=== PATIENT | female | born 1945 | race Caucasian/White ===

== ENCOUNTER 2018-10-13 06:34 | Inpatient (IN) ==
--- NOTE | 2018-10-13 06:50 | History & Physical Report ---
Date of Encounter: 10/13/18 Time of Encounter: 06:49 24 Hour HP Update - Instructions Instructions: If the History and Physical is less than 30 days old and was completed prior to A.M. admission and or procedure and has NOT been updated on calendar day of procedure please complete this update prior to performing procedure. - Update Patient reports changes in Medical Condition: No Changes in examination, assessment, or condition: No Changes in Medication: No Preop tests/diagnostics Reviewed: Yes Surgery Remains Indicated: Yes Consent for Planned Operative Procedure(s) Verified: Yes - Pre-Operative Checklist Preoperative Checklist Indicated: No Prophylactic Antibiotic Ordered: Yes Is VTE Prophylaxis Indicated?: Yes
[2018-10-13] MEDS ORDERED: CeFAZolin Syr 2,000MG/20 ML 2,000 MG/20 ML SYRINGE IVPB ONE (06:57)
[2018-10-13] MEDS ORDERED: Ringers Solution, Lactated 1,000 ML IVC SCH (07:00)
[2018-10-13] MEDS ORDERED: LIDOCAINE 1% PF 2 ML AMPUL ONE (07:03)
[2018-10-13] MEDS ORDERED: Ethanol\\Acetic Acid\\Na Ace\\Ben 1,000 ML IRRIG.SOLN IR ONE (07:09)
[2018-10-13] MEDS ORDERED: *HR* Propofol 200 MG/20 ML VIAL IVP ONE (07:17)
[2018-10-13] MEDS ORDERED: *HR* Midazolam HCl 2 MG/2 ML VIAL ONE (07:17)
[2018-10-13] MEDS ORDERED: Dexamethasone 4 MG/ML VIAL ONE (07:17)
[2018-10-13] MEDS ORDERED: *HR* FentaNYL (PF) 100 MCG/2 ML VIAL ONE (07:17)
[2018-10-13] MEDS ORDERED: Ondansetron 4 MG/2 ML VIAL ONE (07:17)
[2018-10-13] MEDS ORDERED: Lidocaine -MPF 2% 2 ML VIAL ONE (07:18)
[2018-10-13] MEDS ORDERED: Famotidine 20 MG/2 ML VIAL IVP ONE (07:21)
[2018-10-13] MEDS ORDERED: Acetaminophen IV 1,000 MG/100 ML INFUS..BTL IVPB ONE (07:22)
--- NOTE | 2018-10-13 07:25 | Anesthesia Evaluation PreOp ---
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: Other (Fibromyalgia) Other Medical History: Diabetes Type II Anesthesia History: No Prior Anesthetic Complications : No Alcohol Use: none Drug use: none Medications and Allergies Aspirin [Adult Aspirin Regimen] 81 mg PO DAILY 10/13/18 [History] Cholecalciferol (D-3) [Vitamin D] 1,000 unit PO DAILY 10/13/18 [History] Exenatide Microspheres [Bydureon] 2 mg SQ MO 10/13/18 [History] Fenofibrate Nanocrystallized [Fenofibrate] 145 mg PO DAILY 10/13/18 [History] Glimepiride [Amaryl] 2 mg PO DAILY 10/13/18 [History] Insulin Degludec [Tresiba Flextouch U-100] 42 unit SQ HS 10/13/18 [History] Losartan Potassium [Cozaar] 100 mg PO DAILY 10/13/18 [History] Metformin HCl [Metformin HCl ER] 1,000 mg PO BID 10/13/18 [History] Multivitamin [One Daily Essential] 1 tab PO DAILY 10/13/18 [History] traZODone [TraZODone] 50 mg PO HS PRN 10/13/18 [History] Allergy/AdvReac Type Severity Reaction Status Date / Time Eykufjf-Zwb-Dye Reductase Allergy Muscle Pain Verified 10/13/18 07:06 Inhibitor [Statins] - Meds/Allergy Pre-op Review Medications Reviewed: Yes Allergies Reviewed: Yes Beta Blockers on Current Med List: No Anesthesia Results - Labs Laboratory Tests 10/08/18 10/08/18 10:37 10:37 Hgb 11.6 Hct 37.1 Plt Count 255 Sodium 139 Potassium 4.7 BUN 25 H Creatinine 0.87 - Imaging EKG: report reviewed (SR) Anesthesia Exam O2 Sat Height 1.6 m Height 1.6 m Height 1.6 m Weight 76.657 kg Weight 76.657 kg Weight 76.657 kg O2 Sat by Pulse Oximetry 96 Vital Signs Temp Pulse Resp BP Pulse Ox 98.1 F 90 18 155/85 96 10/13/18 07:00 10/13/18 07:00 10/13/18 07:00 10/13/18 07:00 10/13/18 07:00 Height: 5'3 Weight: 169 lbs NPO (# of Hours): MN Pain Scale: 0 - HEENT Pupil (Motor): Pupils equal, EOMI Mallampati: II Teeth: Normal Oral Opening: Greater than 3 - FOOD PRESERVATION SCIENTIST LOC: Oriented FOOD PRESERVATION SCIENTIST Motor: Normal RUE, Normal LUE, Normal RLE, Normal LLE, Normal Face FOOD PRESERVATION SCIENTIST Sensory: Normal: RUE, LUE, RLE, LLE, Face - Cardiac Rhythm: Regular Murmur: None JVD: No Carotid Bruit: No - Pulmonary Breath Sounds: bilateral Clear Respiratory Effort: Symmetrical Anesthesia Assess/Plan ASA Score: 3 (HTN DM) Level of consciousness: Cooperative Anesthetic Plan: Regional Nerve Block, MAC, Spinal Regional Nerve Block Plan: Adductor canal Autologous Blood: No Monitoring Plan: Standard Monitors Recovery Plan: PACU (Discussed SAB, Adductor Canal Block, MAC, possible GA, agrees to proceed, risks and benefits)
[2018-10-13] MEDS ORDERED: Morphine Sulfate/PF 5mg/10mL Vial ONE (07:43)
[2018-10-13] MEDS ORDERED: ROPIVACAINE HCL/PF 0.5% 30 ML VIAL ONE (07:44)
[2018-10-13] MEDS ORDERED: Bupivacaine/Clonidine Syringe 1 EACH SYRINGE ONE (07:44)
[2018-10-13] MEDS ORDERED: *HR* Morphine Sulfate/PF 10 MG/10 ML AMPUL ONE (08:03)
[2018-10-13] MEDS ORDERED: Propofol 500 MG/50 ML INFUS..BTL ONE (08:24)
--- NOTE | 2018-10-13 08:25 | Discharge Summary ---
<Stephanie Reyes E - Last Filed: 10/13/18 09:07> Orders not resulted at time of discharge: Pending orders 10/13/18 07:22 US anesthesia pain block [US] Routine 10/14/18 01:00 XR knee RT 1-2V [XR] Routine Hemoglobin and Hematocrit [HEME] Routine Date of Encounter: 10/13/18 - Discharge Diagnosis (1) Status post total knee replacement Priority: Primary Status: Acute Qualifiers: Laterality: right Qualified Code(s): Z96.651 - Presence of right artificial knee joint (2) Osteoarthritis of right knee Priority: Primary Status: Chronic Qualifiers: Osteoarthritis type: unspecified Qualified Code(s): M17.11 - Unilateral primary osteoarthritis, right knee (3) Diabetes mellitus Priority: Secondary Status: Chronic Qualifiers: Diabetes mellitus type: type 2 Diabetes mellitus fci insulin use: with fci use Diabetes mellitus complication status: with unspecified complications Qualified Code(s): E11.8 - Type 2 diabetes mellitus with unspecified complications; Z79.4 - intermediate (current) use of insulin (4) HTN (hypertension) Priority: Secondary Status: Chronic Qualifiers: Hypertension type: unspecified Qualified Code(s): I10 - Essential (primary) hypertension (5) HLD (hyperlipidemia) Priority: Secondary Status: Chronic Qualifiers: Hyperlipidemia type: unspecified Qualified Code(s): E78.5 - Hyperlipidemia, unspecified (6) CAD (coronary artery disease) Priority: Secondary Status: Chronic Qualifiers: Coronary Disease-Associated Artery/Lesion type: unspecified vessel or lesion type [place] vs. transplanted heart: unspecified whether [place] or transplanted heart Associated angina: angina presence unspecified Qualified Code(s): I25.10 - Atherosclerotic heart disease of [place] coronary artery without angina pectoris (7) Fibromyalgia Priority: Secondary Status: Chronic (8) Insomnia Priority: Secondary Status: Chronic Qualifiers: Insomnia type: unspecified Qualified Code(s): G47.00 - Insomnia, unspecified (9) History of skin cancer Priority: Secondary Status: Chronic (10) History of kidney stones Priority: Secondary Status: Chronic - Hospital Course Hospital course: Ms. Watkins is a 73 year old female - Time Spent with Patient Total time spent providing and/or coordinating discharge services: - Discharge Medications Home Medications: Aspirin Enteric Coated [Aspirin EC] 325 mg PO BID 10 Days #20 tablet. 10/13/18 [Rx] Cholecalciferol (D-3) [Vitamin D] 1,000 unit PO DAILY 10/13/18 [History] Docusate Sodium [Colace] 100 mg PO BID 5 Days #10 capsule 10/13/18 [Rx] Exenatide Microspheres [Bydureon] 2 mg SQ MO 10/13/18 [History] Fenofibrate Nanocrystallized [Fenofibrate] 145 mg PO DAILY 10/13/18 [History] Glimepiride [Amaryl] 2 mg PO DAILY 10/13/18 [History] Insulin Degludec [Tresiba Flextouch U-100] 42 unit SQ HS 10/13/18 [History] Losartan Potassium [Cozaar] 100 mg PO DAILY 10/13/18 [History] Metformin HCl [Metformin HCl ER] 1,000 mg PO BID 10/13/18 [History] Multivitamin [One Daily Essential] 1 tab PO DAILY 10/13/18 [History] OxyCODONE Immed Rel [Roxicodone 5 MG] 5 mg PO Q6HR PRN 7 Days #28 tablet 10/13/18 [Rx] traZODone [TraZODone] 50 mg PO HS PRN 10/13/18 [History] Lidocaine Patch [Lidoderm 5% patch] 1 each TP DAILY adh..patch 10/15/18 [Rx] Gabapentin [Neurontin] 100 mg PO TID capsule 10/16/18 [Rx] Allergies/Adverse Reactions: Allergy/AdvReac Type Severity Reaction Status Date / Time Nxvfvob-Qim-Wnf Reductase Allergy Muscle Pain Verified 10/13/18 07:06 Inhibitor [Statins] Primary care physician: Toan Angela MD - Patient Status Disposition: Transfer Inpatient Rehab Fac Condition: Good - Discharge Instructions Follow Up With: Stephanie Reyes PAC [Physician Extension Educator] - 10/23/18 8:45 am (Second followup 10/30/18 @ 9am) Jose Posey MD [Partnered Physician] - 11/12/18 5:10 pm Additional Instructions: Discharge Instructions: Total Knee Replacement Please call [facility] ([phone]), your Primary Care Physician, or report to the Emergency Room if you have any of the following symptoms: Nausea, vomiting, fever greater that 101.5, swelling, chest pain, shortness of breath, increased pain/redness/drainage/odor for your incision site, numbness/tingling, or any other concerning symptoms. ACTIVITY:Weight-bearing as tolerated. You may progress off support (crutches or walker) as tolerated. Incentive Spirometer 10 times an hour. MEDICATIONS: Upon discharge resume your home medications. Take all the medications as prescribed. Take a stool softener if taking narcotic pain medications. Stool softeners are only effective if you drink enough fluids. Drink 6-8 glass of water or fluids a day, unless this is not allowed for another health problem. Despite using stool softeners, if you haven't had a bowel movement in 3 days, please switch to a gentle laxative. Gentle laxatives are sold over the counter. You should have a bowel movement within 24 hours, if not call the office. You will be discharged from the hospital with a prescription for pain medication. You are encouraged to decrease the use of narcotic pain medication as tolerated. Should you require a refill, please call the office. [facility] prescribes narcotic pain medication for only 4-6 weeks after surgery. If you require pain medication beyond this time period, you may be referred to your Primary Care Physician or to the Pain Clinic for further evaluation. Plan ahead for refills on pain medication as many narcotics either need to be picked up at the office or mailed. It is best to call 48-72 hours in advance of needing a prescription refill so you don't run out of medication. To help control the post-operative pain, you may take NSAIDs (Aleve,Advil, Motrin, Ibuprofen, Naprosyn) or Tylenol as prescribed on the bottle in addition to the pain medication. ANTICOAGULATION (blood thinners): Continue your Aspirin, Lovenox or Coumadin as prescribed to help prevent a blood clot in the leg or in the lungs. As long as your incision remains dry and you tolerate the NSAIDs (Aleve, Advil, Motrin, ibuprofen, naprosyn), it is OK to use the NSAIDS while you are taking your anticoagulation medication. Should your incision start to drain, stop the NSAID and contact our office. Common symptoms of blood clot in the legs include: localized pain, swelling, calf tenderness, redness or discoloration of the skin. Blood clot in the lung symptoms include: shortness of breath, rapid pulse, sweating, and chest pain that worsens with deep breathing, coughing up blood, lightheadedness, feelings of anxiety. If you experience any of these symptoms notify your physician immediately, go to the emergency room, or if having trouble breathing, call 911. WOUND CARE: Leave the dressing on for 7 to 10days. You may change the dressing if it becomes saturated greater than 50%. Do not get the dressing wet at any time. Wash your hands with antibacterial soap, rinse and dry prior to any wound care. If you have sandra the visiting nurse or rehab facility can remove the stapes 10-14 days after surgery and place steri-strips across the wound. Leave the steri-strips in place until they fall off on their won. You may let water from the shower run on top of the steri-strips. If you do not have a visiting nurse or rehab facility, you will need to return to the office at 10-14 days for the sandra to be removed. If you have itching or redness around the dressing call the office. FOLLOW-UP: Please follow up with your surgeon in the orthopedic clinic in 4 weeks from the day of surgery. If you have sandra that need to be removed, you will need to come back to the office in 10-14 days from the day of surgery. <Stephanie Fernandes - Last Filed: 10/16/18 21:24> - NOTES TO OUTPATIENT PROVIDER Notes to Outpatient Provider: Will hold zanaflex for now due to causing low BP Orders not resulted at time of discharge: Pending orders 10/13/18 07:22 US anesthesia pain block [US] Routine Date of Encounter: 10/16/18 Time of Encounter: 17:50 - Discharge Diagnosis (1) Status post total knee replacement Priority: Primary Status: Acute Qualifiers: Laterality: right Qualified Code(s): Z96.651 - Presence of right artificial knee joint (2) Osteoarthritis of right knee Priority: Primary Status: Chronic Qualifiers: Osteoarthritis type: unspecified Qualified Code(s): M17.11 - Unilateral primary osteoarthritis, right knee (3) CAD (coronary artery disease) Priority: Secondary Status: Chronic Qualifiers: Coronary Disease-Associated Artery/Lesion type: unspecified vessel or lesion type [place] vs. 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 insulin use: with fci use Diabetes mellitus complication status: with unspecified complications Qualified Code(s): E11.8 - Type 2 diabetes mellitus with unspecified complications; Z79.4 - termite treater (current) use of insulin (5) Fibromyalgia Priority: Secondary Status: Chronic (6) HLD (hyperlipidemia) Priority: Secondary Status: Chronic Qualifiers: Hyperlipidemia type: unspecified Qualified Code(s): E78.5 - Hyperlipidemia, unspecified (7) HTN (hypertension) Priority: Secondary Status: Chronic Qualifiers: Hypertension type: unspecified Qualified Code(s): I10 - Essential (primary) hypertension (8) History of kidney stones Priority: Secondary Status: Chronic (9) History of skin cancer Priority: Secondary Status: Chronic (10) Insomnia Priority: Secondary Status: Chronic Qualifiers: Insomnia type: unspecified Qualified Code(s): G47.00 - Insomnia, unspecified - Hospital Course Hospital course: Ms. Watkins is a 73 year old female status post Right robotic-assisted Total knee replacement, left knee injection 10/13/18 Posey with history of DM, HTN, CAD, fibromyalgia. Zanaflex was added to pain management regimen but was found to lower her BP after giving each time. The dose was lowered but still caused a decrease in BP which did normalize by time of discharge. Otherwise, she had an uneventful hospital course. She participated in therapy and was stable at time of discharge. patient resting in bed, spouse at bedside Pain controlled at tie of exam. Alert and oriented x 3 Incision c/d/i, No calf tenderness, erythema, warmth, Neurovascularly intact H/H - 10.2/31.3 BP normalized after stopping zanaflex. 131/68 at time of exam Continue PT/OT HH preplan - patient now desiring ECF secondary to limited mobility In addition patient requesting hospital bed - appropriate - patient requires positioning of the body not feasible with ordinary bed. Plan - ECF accepted to [facility]. Will DC there today. - Time Spent with Patient Total time spent providing and/or coordinating discharge services: Date of admission: 10/13/18 10:35 Primary care physician: Toan Angela MD Consults: 10/13/18 10:55 Consult to Occupational Therapy [CONS] Routine Comment: Evaluate, develop and implement POC Reason for Consult: post knee surgery Does patient have active BEDREST order?: No Is patient medically & hemodynamically stable?: Yes Consult to Orthopedic Navigator [CONS] [CONS] Routine Consult to Physical Therapy [CONS] Routine Comment: Evaluate, develop and impliment POC Reason for Consult: post knee surgery Does patient have active BEDREST order?: No Is patient medically & hemodynamically stable?: Yes Consult to Punch Machine Operator [CONS] Routine Reason for SW Consult: post op joint replacement RT Post Op Consult [CONS] Routine Discharging clinician: Jose Posey Anticipated date of discharge: 10/16/18 Labs on day of discharge: Labs from last 24 hours 10/16/18 10/16/18 10/16/18 16:47 12:06 09:10 WBC RBC Hgb Hct MCV MCH MCHC RDW Plt Count MPV Immature Gran % Seg Neutrophils % Lymphocytes % Monocytes % Eosinophils % Basophils % Neutrophils # Lymphocytes # Monocytes # Eosinophils # Basophils # Sodium 138 Potassium 4.0 Chloride 102 Carbon Dioxide 24 BUN 15 Creatinine 0.78 Est GFR ( Amer) > 60 Est GFR (Non-Af Amer) > 60 BUN/Creatinine Ratio 19 Glucose 267 H POC Glucose 157 H 179 H Calculated Osmolality 296 Calcium 9.4 10/16/18 10/16/18 10/15/18 09:10 07:37 19:40 WBC 11.8 H RBC 3.43 L Hgb 10.2 L Hct 31.3 L MCV 91.3 MCH 29.7 MCHC 32.6 RDW 12.5 Plt Count 273 MPV 10.3 Immature Gran % 0.5 Seg Neutrophils % 62.7 Lymphocytes % 25.7 Monocytes % 8.6 Eosinophils % 2.0 Basophils % 0.5 Neutrophils # 7.4 Lymphocytes # 3.0 Monocytes # 1.0 Eosinophils # 0.2 Basophils # 0.1 Sodium Potassium Chloride Carbon Dioxide BUN Creatinine Est GFR ( Amer) Est GFR (Non-Af Amer) BUN/Creatinine Ratio Glucose POC Glucose 185 H 200 H Calculated Osmolality Calcium 10/15/18 16:31 WBC RBC Hgb Hct MCV MCH MCHC RDW Plt Count MPV Immature Gran % Seg Neutrophils % Lymphocytes % Monocytes % Eosinophils % Basophils % Neutrophils # Lymphocytes # Monocytes # Eosinophils # Basophils # Sodium Potassium Chloride Carbon Dioxide BUN Creatinine Est GFR ( Amer) Est GFR (Non-Af Amer) BUN/Creatinine Ratio Glucose POC Glucose 113 H Calculated Osmolality Calcium - Impressions ITS Impressions Knee X-Ray 10/13/18 01:00 IMPRESSION: Total knee arthropasty without acute hardware complication. D/ / Clarence Holliday MD / Clarence Holliday MD Interpreting Provider: Clarence Holliday MD - Patient Status Functional capacity at discharge: uses cane/walker Overall status at discharge: patient is back to baseline - Diet and Activity Activity: as per physical therapy Diet: advance to your usual diet
--- NOTE | 2018-10-13 08:26 | Anesthesia Procedures ---
Date of Encounter: 10/13/18 Time of Encounter: 08:23 Procedures: Anesthesia - Epidural/Spinal Patient ID/Chart reviewed: Yes Patient examined: Yes Consent Obtained: Yes Supplemental Oxygen: None/Room Air Sedation: Versed (mg): 2 Sedation: Fentanyl (mcg): 25 Site Prep: Aseptic Technique, Sterile prep and drape, 0.5% Chlorhexidine/Alcohol Patient position: upright Local Anesthetic: Lidocaine 1% Interspace Used: L3-L4 CSF: Yes (clear) Paresthesia: No Spinal Needle Gauge: 25 Spinal Dose: 1.5 ml 0.5% marcaine + 250 mcg duramorph Vitals + FHT's: Vital Signs/O2 Sat, Most Current Temp Pulse Resp BP Pulse Ox 98.1 F 90 18 155/85 96 10/13/18 07:00 10/13/18 07:00 10/13/18 07:00 10/13/18 07:00 10/13/18 07:00 - Nerve Block Procedure Date: 10/13/18 Time: 08:20 Allergies/Adv Reactions: afhtxme-VTN-yik reductase inhibitor Pre-op Diagnosis: right knee arthritis Surgical Procedure: right total knee arthroplasty Checklist: Correct Patient Identifier, Correct procedure, History checked Correct side: Right Blood Thinner: No Monitor Applied: BP, Pulse Oximetry Supplemental Oxygen via Nasal Cannula (L/min): 2 Sedation: Versed (mg): 2 Sedation: Fentanyl (mcg): 25 Indication: Post Op Analgesia Pre-op Neuro Deficits: No Block Type: Other (adductor canal) Catheter placed: No Sterile Technique: Yes Ultrasound used: Yes Anatomy identified: Yes Visual spread of Local: Yes Neuro Stimulation: No Smooth Injection of Local: Yes Pain with Injection of Local: No Prep: Chlorhexadine Needle: 21 x 100 mm Stimuplex Local: Ropivacaine Volume (cc): 30 Number of Attempts: 1 Complications: None/effective block Vitals: Vital Signs/O2 Sat, Most Current Temp Pulse Resp BP Pulse Ox 98.1 F 81 18 142/69 98 10/13/18 07:00 10/13/18 08:28 10/13/18 07:00 10/13/18 08:28 10/13/18 08:28
[2018-10-13] MEDS ORDERED: Bupivacaine-MPF 0.25% 10 ML VIAL ONE (08:55)
[2018-10-13] MEDS ORDERED: MethylPREDNISolone Acet(DEPOT) 80 MG/ML VIAL ONE (08:55)
[2018-10-13] MEDS ORDERED: *HR* PHENYLEPHRINE 1,000 MCG/10 ML SYRINGE IVP ONE (08:55)
[2018-10-13] MEDS ORDERED: Tranexamic Acid 1,000 MG/10 ML VIAL ONE (09:00)
[2018-10-13] MEDS ORDERED: *HR* HYDROmorphone (PF) 1 MG/ML SYRINGE IVP PRN (09:19)
[2018-10-13] MEDS ORDERED: *HR* OxyCODONE Immed Rel 5 MG TABLET PO PRN (09:19)
[2018-10-13] MEDS ORDERED: *HR* Labetalol 20 MG/4 ML SYRINGE IVP PRN (09:19)
[2018-10-13] MEDS ORDERED: Ondansetron 4 MG/2 ML VIAL IVP ONE (09:19)
--- NOTE | 2018-10-13 09:43 | Orthopedic Operative Note ---
Date of procedure: 10/13/18 Pre-op diagnosis: Right knee arthritis, left knee pain Post-op diagnosis: same Procedure: Procedure: Right robotic-assisted Total knee replacement, left knee injection Estimated blood loss: 100 cc Hardware: Metal and polyethylene replacement. [place] Femur: 3 Tibia: 2 TS insert: 9 Patella: 36 Exam Under anesthesia: 1 degree hyperextension 0 degree varus valgus as calculated by the robot full flexion and no instability Procedural Notes: Grade 4 arthritic changes lateral compartment grade 3 arthritic changes patellofemoral joint and medial compartment. Operative procedure: The patient was brought to the operating room and placed on the operating room table. After spinal was administered the operative knee was examined. Findings were noted in the exam under anesthesia. Patient underwent a corticosteroid injection into the left knee under sterile conditions before beginning with right knee surgery. The operative extremity was prepped and draped in sterile surgical fashion. The patient received IV antibiotics prior to skin incision. A standard midline incision was made centered over the patella. The incision was made through the skin and subcutaneous tissue. A medial parapatellar tendon approach was performed. Care was taken to preserve tissue along the medial aspect of the patella. And to protect the patella tendon. The deep MCL was released off the medial tibia. The infra patella fat pad was excised. The patella was everted and cut was made at the level of the insertion of the quadriceps and patella tendon. The patella was sized the guide was seated and the lug holes are drilled. Knee was brought into flexion. Patient noted to have Grade 4 arthritic changes lateral compartment grade 3 arthritic changes patellofemoral joint and medial compartment. Steinmann pins were placed in the tibia and the femur for the tibial and femoral arrays respectively. Checkpoints were also placed in the tibia and the femur for calculation purposes. The knee including the femur and the tibial registered. Osteophytes, ACL and PCL were excised at this point. Extension and flexion were assessed with a valgus stress components were adjusted on the computer to balance the knee. Femoral cuts were made first with robotic assistance, these included the anterior cut posterior cuts chamfer cuts. Tibial cut was then performed with robotic assistance as well. Bone fragments were removed, as well as the medial and lateral meniscus. The size 3 femoral guide was seated box cut was made lug holes are drilled. The size 2 tibial tray was seated and prepared with the fin cutter. Trial reduction with the 9 TS Lara revealed extension of 0 degree and 3 degrees varus full flexion. No varus valgus instability. Trial reduction revealed excellent patella tracking. All trial components were removed all bony surfaces were irrigated. The Tibia was seated followed by the femur, The selected Lara size was seated and secured patella. Patient had similar findings for motion and stability. The knee was closed by the PA. The knee was then irrigated out with 2 L of pulse irrigation. The extensor mechanism was closed with #2 FiberWire suture and #2 PDS suture. The subcutaneous tissue was then irrigated and closed deep with #1 PDS suture superficially with 0 PDS suture and skin was closed with zip tie The patient was then placed in a sterile dressing and a postoperative brace extubated and transferred to recovery room in stable condition. Anesthesia: spinal Surgeon: Jose Posey Was there an assistant professor of anthropology present: Yes Door Glass Installer: Grecia Gramajo Estimated blood loss (cc): 100 Condition: stable Disposition: PACU
[2018-10-13 10:36] LABS: Hematocrit 33.6 % (35.3-44.9); Hemoglobin 10.8 g/dL (11.5-15.4)
[2018-10-13] MEDS ORDERED: *HR* OxyCODONE/APAP 5/325 TABLET PO PRN (10:37)
--- NOTE | 2018-10-13 10:39 | Anesthesia Evaluation Post Op ---
Date of Encounter: 10/13/18 Time of Encounter: 10:40 - Vital Signs Vital Signs: Vital Signs/O2 Sat/Glucose, Most Current Temp Pulse Resp BP Pulse Ox 10/13/18 10:38 98.8 F 64 14 125/60 97 10/13/18 10:28 61 14 126/58 97 10/13/18 10:18 61 14 125/58 97 10/13/18 10:08 98.4 F 64 16 122/63 97 10/13/18 08:28 81 142/69 98 10/13/18 07:00 98.1 F 90 18 155/85 96 - Lungs Lungs: Clear Ascult./Percussion - Airway Airway: Non-obstructed - Cardiovascular Regular Rate - Mental Status Mental Status: Alert & Oriented, Answers Appropriately - Pain Pain Scale: 0 - Nausea Vomiting Nausea Vomiting: Not Present - Hydration Hydration: Ice chips - Discharge PostOp Status: Transfer Patient to floor
[2018-10-13] MEDS ORDERED: D5% in Water 1,000 ML IVC PRN (10:55)
[2018-10-13] MEDS ORDERED: Ondansetron 4 MG/2 ML VIAL IVP PRN (10:55)
[2018-10-13] MEDS ORDERED: EXENATIDE MICROSPHERES 2 MG SQ SCH (10:55)
[2018-10-13] MEDS ORDERED: Naloxone 0.4 MG/ML INJ IVP PRN (10:55)
[2018-10-13] MEDS ORDERED: *HR* Dextrose 50 % in Water (Syg) 50 ML SYRINGE IVP PRN (10:55)
[2018-10-13] MEDS ORDERED: Dextrose Gel 15 GM/37.5 ML TUBE PO PRN ×2 (10:55)
[2018-10-13] MEDS ORDERED: Temazepam 15 MG CAPSULE PO PRN (10:55)
[2018-10-13] MEDS ORDERED: traZODone 50 MG TABLET PO PRN (10:55)
[2018-10-13] MEDS ORDERED: MOM Conc 10 ML UD.LIQ PO PRN (10:55)
[2018-10-13] MEDS ORDERED: Sennosides 8.6 MG TABLET PO PRN (10:55)
[2018-10-13] MEDS: *HR* Glimepiride 2 MG TABLET PO SCH (12:42)
[2018-10-13] MEDS: *HR* Metformin 500 MG TABLET PO SCH ×2 (12:43→20:29)
[2018-10-13] MEDS: Cholecalciferol (D-3) 1,000 UNIT TABLET PO SCH (12:44)
[2018-10-13] MEDS: Fenofibrate 54 MG TABLET PO SCH (12:44)
[2018-10-13] MEDS: Insulin LISPRO 300 UNITS/3 ML VIAL SQ SCH ×3 (12:44→20:37)
[2018-10-13] MEDS: Multivit/Ca/Min/Fe/FA 1 TAB TABLET PO SCH (12:44)
[2018-10-13] MEDS ORDERED: (Exenatide Microspheres [Bydureon] 2 MG) SQ SCH (12:45)
[2018-10-13] MEDS: Aspirin Enteric Coated 81 MG Tablet PO SCH (12:51)
[2018-10-13] MEDS: *HR* OxyCODONE/APAP 5/325 TABLET PO PRN ×2 (12:58→19:11)
[2018-10-13] MEDS ORDERED: *HR* Promethazine 25 MG/ML VIAL IVP PRN (14:54)
[2018-10-13] MEDS: Acetaminophen IV 1,000 MG/100 ML INFUS..BTL IVPB PRN ×2 (15:39→23:00)
[2018-10-13] MEDS: *HR* Enoxaparin 30 MG/0.3 ML SYRINGE SQ SCH (17:04)
[2018-10-13] MEDS ORDERED: *HR* Enoxaparin 30 MG/0.3 ML SYRINGE SQ SCH (18:00)
[2018-10-13] MEDS: Ringers Solution, Lactated 1,000 ML IVC SCH ×2 (20:33→23:01)
[2018-10-13] MEDS ORDERED: INSULIN DEGLUDEC 42 UNIT SQ SCH (21:00)
[2018-10-14] MEDS: *HR* OxyCODONE/APAP 5/325 TABLET PO PRN (01:18)
[2018-10-14 04:49] LABS: Hematocrit 30.7 % (35.3-44.9); Hemoglobin 9.9 g/dL (11.5-15.4)
[2018-10-14 05:08] LABS: BUN/Creatinine Ratio 27 (6-26); Blood Urea Nitrogen 21 mg/dL (8-23); Calcium 9.2 mg/dL (8.6-10.3); Carbon Dioxide 22 mEq/L (23-29); Chloride 107 mEq/L (98-107); Glucose 150 mg/dL (70-105); Osmolality,Calculated 290 (280-300); Potassium 4.3 mEq/L (3.5-5.1); Sodium 137 mEq/L (136-145); eGFR For Non-African Americans > 60 (> 60)
[2018-10-14] MEDS: *HR* Enoxaparin 30 MG/0.3 ML SYRINGE SQ SCH ×2 (05:32→18:12)
[2018-10-14] MEDS: *HR* OxyCODONE Immed Rel 5 MG TABLET PO PRN ×5 (05:40→22:57)
--- NOTE | 2018-10-14 06:32 | Orthopedics Progress Note ---
Date of Encounter: 10/14/18 Time of Encounter: 06:32 Subjective Interval history: Patient was seen this morning doing well without complaints. Afebrile vital signs stable. Operative extremity: Neurovascularly intact Dressing clean dry and intact Calves nontender Assessment and plan: Continue with postoperative care Hemoglobin 9.9 Objective Vital signs: Vital Signs Temp Pulse Resp BP Pulse Ox 10/14/18 04:20 97.9 F 72 16 114/63 96 10/13/18 22:51 97.9 F 83 17 145/62 98 10/13/18 19:07 97.6 F 86 16 155/71 97 10/13/18 16:51 97.3 F L 57 14 100/53 95 10/13/18 10:55 97.5 F L 63 16 127/77 98 10/13/18 10:48 98 10/13/18 10:38 98.8 F 64 14 125/60 97 10/13/18 10:28 61 14 126/58 97 10/13/18 10:18 61 14 125/58 97 10/13/18 10:08 98.4 F 64 16 122/63 97 10/13/18 08:28 81 142/69 98 10/13/18 07:00 98.1 F 90 18 155/85 96 Intake and Output 10/13/18 10/13/18 10/14/18 15:59 23:59 07:59 Intake Total 120 / 120 440 / 440 250 / 250 Output Total 100 / 100 300 / 300 200 / 200 Balance 20 / 20 140 / 140 50 / 50 Intake: IV Fluids 120 / 120 200 / 200 Ofirmev 1,000 mg/100 ml 1,000 100 / 100 100 / 100 mg In 100 ml @ 400 mls/hr IVPB Q6HR PRN Rx#:[id number] Ancef Syringe 2,000 MG/20 ML 2, 20 / 20 000 mg In 20 ml @ 200 mls/hr IVPB PREOP ONE Rx#:[id number] Ancef 2,000 MG In 0.9 % Sodium 100 / 100 Chloride 100 ML @ 200 mls/hr IVPB Q8HR YULIA Rx#:[id number] Oral 240 / 240 250 / 250 Output: Urine 300 / 300 200 / 200 Estimated Blood Loss 100 / 100 Other: Meal Dinner Percent of Meal Consumed 25% 100% # Voids 1 1 Weight 76.658 kg Blood Glucose* 103 242 Patient Weight 10/14/18 23:59 Weight 76.658 kg - Labs CBC & BMP: 10/14/18 04:23 10/14/18 04:23 Labs: Abnormal lab results Hgb 9.9 g/dL (11.5-15.4) L 10/14/18 04:23 Hct 30.7 % (35.3-44.9) L 10/14/18 04:23 Carbon Dioxide 22 mEq/L (23-29) L 10/14/18 04:23 BUN/Creatinine Ratio 27 (6-26) H 10/14/18 04:23 Glucose 150 mg/dL (70-105) H 10/14/18 04:23 POC Glucose 137 mg/dL (70-99) H 10/13/18 06:58 Consult Discharge Plan - Plan Referrals: Toan Angela MD [Primary Care Provider] -
[2018-10-14] MEDS: Multivit/Ca/Min/Fe/FA 1 TAB TABLET PO SCH (08:12)
[2018-10-14] MEDS: Aspirin Enteric Coated 81 MG Tablet PO SCH (08:12)
[2018-10-14] MEDS: Fenofibrate 54 MG TABLET PO SCH (08:12)
[2018-10-14] MEDS: Cholecalciferol (D-3) 1,000 UNIT TABLET PO SCH (08:12)
[2018-10-14] MEDS: *HR* Metformin 500 MG TABLET PO SCH ×2 (08:12→20:51)
[2018-10-14] MEDS: Insulin LISPRO 300 UNITS/3 ML VIAL SQ SCH ×4 (08:13→20:59)
[2018-10-14] MEDS: *HR* Glimepiride 2 MG TABLET PO SCH (08:16)
[2018-10-14] MEDS ORDERED: tiZANidine 4 MG TABLET PO PRN (09:25)
[2018-10-14] MEDS: Acetaminophen IV 1,000 MG/100 ML INFUS..BTL IVPB PRN ×2 (10:07→16:06)
--- NOTE | 2018-10-14 11:50 | Event Note ---
Date of Encounter: 10/14/18 Time of Encounter: 11:50 POD#1 Date of procedure: 10/13/18 Pre-op diagnosis: Right knee arthritis, left knee pain Post-op diagnosis: same Procedure: Procedure: Right robotic-assisted Total knee replacement, left knee injection patient resting in bed, spouse at bedside Patient c/o pain - states having trouble getting pain medications on time and not effective at current dosing Nurse safety and skill based pay manager aware Patient currently getting Oxycodone, Ofirmev, Zanaflex, Lidoderm Alert and oriented x 3 Incision c/d/i No calf tenderness, erythema, warmth Muscle spasm noted to quad musculature Neurovascularly intact Discussed increasing Tizanidine dosing as pt states it has helped --- increased to 6mg Q8 hrs Discussed adding Gabapentin if necessary to aid in further pain control --- patient desiring to avoid NSAIDs at this time Discussed foot pumping motion to encourage muscle stretching and relaxation along posterior knee where patient states she is feeling a "tight" sensation coming and going Continue PT/OT HH preplan - patient now desiring ECF secondary to limited mobility In addition patient requesting hospital bed - appropriate - patient requires positioning of the body not feasible with ordinary bed. Vital Signs Temp Pulse Resp BP Pulse Ox 10/14/18 12:33 98.2 F 84 17 115/70 93 10/14/18 06:32 98.3 F 77 17 138/71 94 10/14/18 04:20 97.9 F 72 16 114/63 96 10/13/18 22:51 97.9 F 83 17 145/62 98 10/13/18 19:07 97.6 F 86 16 155/71 97 Intake and Output 10/14/18 10/14/18 10/14/18 07:59 15:59 23:59 Intake Total 250 / 250 340 / 340 100 / 100 Output Total 200 / 200 Balance 50 / 50 340 / 340 100 / 100 Intake: IV Fluids 100 / 100 100 / 100 Ofirmev 1,000 mg/100 ml 1,000 100 / 100 100 / 100 mg In 100 ml @ 400 mls/hr IVPB Q6HR PRN Rx#:[id number] Oral 250 / 250 240 / 240 Output: Urine 200 / 200 Other: Meal Breakfast Percent of Meal Consumed 55% # Voids 1 Weight 76.658 kg Blood Glucose* 158 150 Patient Weight 10/14/18 23:59 Weight 76.658 kg Short CBC 10/14/18 Range/Units 04:23 Hgb 9.9 L (11.5-15.4) g/dL Hct 30.7 L (35.3-44.9) % BMP 10/14/18 Range/Units 04:23 Sodium 137 (136-145) mEq/L Potassium 4.3 (3.5-5.1) mEq/L Chloride 107 (98-107) mEq/L Carbon Dioxide 22 L (23-29) mEq/L BUN 21 (8-23) mg/dL Creatinine 0.79 (0.60-1.20) mg/dL Glucose 150 H (70-105) mg/dL Calcium 9.2 (8.6-10.3) mg/dL
[2018-10-14] MEDS ORDERED: tiZANidine 4 MG TABLET PO ONE (12:35)
[2018-10-14] MEDS: traMADol 50 MG TABLET PO PRN ×2 (12:46→20:51)
[2018-10-14] MEDS: tiZANidine 4 MG TABLET PO PRN (18:33)
[2018-10-15] MEDS: Acetaminophen IV 1,000 MG/100 ML INFUS..BTL IVPB PRN ×2 (00:59→10:34)
[2018-10-15 05:14] LABS: Hematocrit 28.8 % (35.3-44.9); Hemoglobin 9.4 g/dL (11.5-15.4)
[2018-10-15] MEDS: *HR* OxyCODONE Immed Rel 5 MG TABLET PO PRN ×4 (05:16→22:20)
[2018-10-15] MEDS: *HR* Enoxaparin 30 MG/0.3 ML SYRINGE SQ SCH ×2 (05:17→17:49)
[2018-10-15 05:34] LABS: BUN/Creatinine Ratio 20 (6-26); Blood Urea Nitrogen 15 mg/dL (8-23); Calcium 9.2 mg/dL (8.6-10.3); Carbon Dioxide 23 mEq/L (23-29); Chloride 106 mEq/L (98-107); Glucose 154 mg/dL (70-105); Osmolality,Calculated 288 (280-300); Potassium 3.7 mEq/L (3.5-5.1); Sodium 137 mEq/L (136-145); eGFR For Non-African Americans > 60 (> 60)
[2018-10-15] MEDS: tiZANidine 4 MG TABLET PO PRN (06:40)
--- NOTE | 2018-10-15 08:20 | Orthopedics Progress Note ---
Date of Encounter: 10/15/18 Time of Encounter: 08:19 Subjective Interval history: Patient was seen this morning doing well without complaints. Afebrile vital signs stable. Operative extremity: Neurovascularly intact Dressing clean dry and intact Calves nontender Assessment and plan: Continue with postoperative care dc to ecf when approved Objective Vital signs: Vital Signs Temp Pulse Resp BP Pulse Ox 10/15/18 06:34 98.9 F 97 16 178/70 97 10/14/18 23:47 97.8 F 85 16 158/77 99 10/14/18 19:58 98.3 F 80 17 117/72 92 10/14/18 12:33 98.2 F 84 17 115/70 93 Intake and Output 10/14/18 10/15/18 10/15/18 23:59 07:59 15:59 Intake Total 620 / 620 800 / 800 Output Total 400 / 400 800 / 800 Balance 220 / 220 0 / 0 Intake: IV Fluids 100 / 100 100 / 100 Ofirmev 1,000 mg/100 ml 1,000 100 / 100 100 / 100 mg In 100 ml @ 400 mls/hr IVPB Q6HR PRN Rx#:[id number] Oral 520 / 520 700 / 700 Output: Urine 400 / 400 800 / 800 Other: Meal Dinner Percent of Meal Consumed 50% Weight 76.659 kg Blood Glucose* 171 Patient Weight 10/15/18 23:59 Weight 76.659 kg - Labs CBC & BMP: 10/15/18 04:22 10/15/18 04:22 Labs: Abnormal lab results Hgb 9.4 g/dL (11.5-15.4) L 10/15/18 04:22 Hct 28.8 % (35.3-44.9) L 10/15/18 04:22 Glucose 154 mg/dL (70-105) H 10/15/18 04:22 POC Glucose 200 mg/dL (70-99) H 10/14/18 16:01 Consult Discharge Plan - Plan Referrals: Toan Angela MD [Primary Care Provider] -
[2018-10-15] MEDS: Insulin LISPRO 300 UNITS/3 ML VIAL SQ SCH ×4 (08:53→20:54)
[2018-10-15] MEDS: Fenofibrate 54 MG TABLET PO SCH (08:54)
[2018-10-15] MEDS: Aspirin Enteric Coated 81 MG Tablet PO SCH (08:54)
[2018-10-15] MEDS: Cholecalciferol (D-3) 1,000 UNIT TABLET PO SCH (08:54)
[2018-10-15] MEDS: *HR* Glimepiride 2 MG TABLET PO SCH (08:54)
[2018-10-15] MEDS: Multivit/Ca/Min/Fe/FA 1 TAB TABLET PO SCH (08:54)
[2018-10-15] MEDS: *HR* Metformin 500 MG TABLET PO SCH ×2 (08:54→20:31)
--- NOTE | 2018-10-15 10:13 | Physician Discharge Referral ---
Addendum entered and electronically signed by FLORENCE Teixeira 10/16/18 21:09: Will stop tizanidine due to it causing low blood pressure. Original Note: <Stephanie Reyes E - Last Filed: 10/15/18 10:11> ExtendedCare Referral Info Transfer To: [facility] Provider in Charge: Dr. Jose Posey - Diagnosis (1) Status post total knee replacement Priority: Primary Status: Acute (2) Osteoarthritis of right knee Priority: Primary Status: Chronic (3) Diabetes mellitus Priority: Secondary Status: Chronic (4) HTN (hypertension) Priority: Secondary Status: Chronic (5) HLD (hyperlipidemia) Priority: Secondary Status: Chronic (6) CAD (coronary artery disease) Priority: Secondary Status: Chronic (7) Fibromyalgia Priority: Secondary Status: Chronic (8) Insomnia Priority: Secondary Status: Chronic (9) History of skin cancer Priority: Secondary Status: Chronic (10) History of kidney stones Priority: Secondary Status: Chronic Expected Duration of Placement: less than 30 days Prognosis: Good Aware of Diagnosis: Patient Aware of Prognosis: Patient - Transfer Medications Prescriptions: Tizanidine HCl [Zanaflex] 6 mg PO TID PRN 7 Days #21 cap PRN Reason: Spasms Home Medications: Aspirin Enteric Coated [Aspirin EC] 325 mg PO BID 10 Days #20 tablet. 10/13/18 [Rx] Cholecalciferol (D-3) [Vitamin D] 1,000 unit PO DAILY 10/13/18 [History] Docusate Sodium [Colace] 100 mg PO BID 5 Days #10 capsule 10/13/18 [Rx] Exenatide Microspheres [Bydureon] 2 mg SQ MO 10/13/18 [History] Fenofibrate Nanocrystallized [Fenofibrate] 145 mg PO DAILY 10/13/18 [History] Glimepiride [Amaryl] 2 mg PO DAILY 10/13/18 [History] Insulin Degludec [Tresiba Flextouch U-100] 42 unit SQ HS 10/13/18 [History] Losartan Potassium [Cozaar] 100 mg PO DAILY 10/13/18 [History] Metformin HCl [Metformin HCl ER] 1,000 mg PO BID 10/13/18 [History] Multivitamin [One Daily Essential] 1 tab PO DAILY 10/13/18 [History] OxyCODONE Immed Rel [Roxicodone 5 MG] 5 mg PO Q6HR PRN 7 Days #28 tablet 10/13/18 [Rx] traZODone [TraZODone] 50 mg PO HS PRN 10/13/18 [History] Lidocaine Patch [Lidoderm 5% patch] 1 each TP DAILY adh..patch 10/15/18 [Rx] Tizanidine HCl [Zanaflex] 6 mg PO TID PRN 7 Days #21 cap 10/15/18 [Rx] Gabapentin [Neurontin] 100 mg PO TID capsule 10/16/18 [Rx] Allergies/Adverse Reactions: Allergy/AdvReac Type Severity Reaction Status Date / Time Cqwuayy-Bpa-Vxw Reductase Allergy Muscle Pain Verified 10/13/18 07:06 Inhibitor [Statins] - Respiratory Orders Smoking Cessation: Smoking cessation has been advised. For more information, call the [place] Tobacco Quit Line at 2-071-NNGN-NOW. - Ancillary Orders May use pressure relief devices daily prn, May go on NITHIN w/family/respon alliance party w/meds at nurse discretion PRN, May consult with Dentist, Equity Holder, Manager Of Manufacturing PRN - Mobility Orders Chair, Ambulate - Rehabiliation Orders Rehab Potential: Good Rehab Orders: Evaluation for Physical Therapy, Evaluation for Occupational Therapy Other: Total Knee replacement Precautions x 6 weeks Apply cold therapy wrap 3-6x/day for 20 minutes at a time. Encourage ambulation throughout the day and incentive spirometer 10x/hour. Elevate affected extremity above heart as tolerated. Brace: Wear knee immobilizer at night x 2 weeks. - Treatments Skin tear care topically daily PRN per policy List/Other: Opsite placed. Keep dressing intact until first follow up appointment. If greater than 50% saturated, notify office, remove dressing and place appropriate dressing back in place. Leave Zipline intact. Opsite dressing is water resistant, not water-proof. OK to shower, but do not get dressing wet. - Diet Orders Regular CERTIFICATION: I certify that the transfer of the above named patient to an Extended Care Facility is necessary for the continuing treatment of the diagnosis listed. The above information is true and accurate reflection of patient's current condition. Confidential - Redisclosure prohibited without a patient's written consent. <Stephanie Fernandes - Last Filed: 10/16/18 13:22> - Respiratory Orders Smoking Cessation: Smoking cessation has been advised. For more information, call the [place] Tobacco Quit Line at 5-761-JGGL-NOW. CERTIFICATION: I certify that the transfer of the above named patient to an Extended Care Facility is necessary for the continuing treatment of the diagnosis listed. The above information is true and accurate reflection of patient's current condition. Confidential - Redisclosure prohibited without a patient's written consent.
[2018-10-15] MEDS: Gabapentin 100 MG CAPSULE PO SCH ×2 (14:46→20:31)
--- NOTE | 2018-10-15 18:12 | Event Note ---
Date of Encounter: 10/15/18 Time of Encounter: 12:00 PCR: POD#2 Right robotic-assisted Total knee replacement, left knee injection 10/13/18 Kalpesh patient resting in bed, spouse at bedside Patient c/o pain - states still does not feel pain is well controlled yet. Patient currently getting Oxycodone, Ofirmev, tizanidine, tramadol, Lidoderm - Will add gabapentin now to plan Alert and oriented x 3 Incision c/d/i, No calf tenderness, erythema, warmth, Neurovascularly intact H/H - 9.4/28.8 afebrile, BP has fluctuated through day / --> currently 114/63, possible BP increases with increase in pain, then decrease after receiving pain medication. Will continue to monitor. States she normally takes BP meds. Encouraged fluid hydration. Continue PT/OT HH preplan - patient now desiring ECF secondary to limited mobility In addition patient requesting hospital bed - appropriate - patient requires positioning of the body not feasible with ordinary bed. Plan - ECF accepted to [facility] today. Patient still feels pain control is inadequate on exam and she does not feel comfortable leaving today. Will reassess after addition of gabapentin
[2018-10-15] MEDS: traMADol 50 MG TABLET PO PRN (20:51)
[2018-10-16] MEDS: *HR* Enoxaparin 30 MG/0.3 ML SYRINGE SQ SCH ×2 (04:40→17:02)
[2018-10-16] MEDS: *HR* OxyCODONE Immed Rel 5 MG TABLET PO PRN (04:40)
[2018-10-16] MEDS: Insulin LISPRO 300 UNITS/3 ML VIAL SQ SCH ×3 (08:21→17:02)
[2018-10-16] MEDS: Fenofibrate 54 MG TABLET PO SCH (08:22)
[2018-10-16] MEDS: Aspirin Enteric Coated 81 MG Tablet PO SCH (08:22)
[2018-10-16] MEDS: Multivit/Ca/Min/Fe/FA 1 TAB TABLET PO SCH (08:22)
[2018-10-16] MEDS: Gabapentin 100 MG CAPSULE PO SCH ×2 (08:22→14:53)
[2018-10-16] MEDS: *HR* Metformin 500 MG TABLET PO SCH (08:22)
[2018-10-16] MEDS: *HR* Glimepiride 2 MG TABLET PO SCH (08:22)
[2018-10-16] MEDS: Cholecalciferol (D-3) 1,000 UNIT TABLET PO SCH (08:22)
[2018-10-16] MEDS ORDERED: tiZANidine 4 MG TABLET PO PRN (09:39)
[2018-10-16] MEDS: *HR* OxyCODONE/APAP 5/325 TABLET PO PRN ×3 (09:47→19:04)
[2018-10-16 09:54] LABS: Basophils # 0.1 K/mcL (0.0-0.2); Basophils % 0.5 %; Eosinophils # 0.2 K/mcL (0.0-0.6); Hematocrit 31.3 % (35.3-44.9); Hemoglobin 10.2 g/dL (11.5-15.4); Immature Granulocytes % 0.5 % (0-4); Lymphocytes % 25.7 %; Mean Corpuscular HGB Conc 32.6 g/dL (31.6-35.5); Mean Corpuscular Hemoglobin 29.7 pg (28.0-33.3); Mean Corpuscular Volume 91.3 fL (83.0-100.0); Mean Platelet Volume 10.3 fL (9.4-12.4); Monocytes % 8.6 %; Neutrophils # 7.4 K/mcL (1.6-8.9); Platelet Count 273 K/mcL (140-400); Red Blood Count 3.43 M/mcL (3.82-4.97); Red Cell Distribution Width 12.5 % (11.5-14.5); Segmented Neutrophils % 62.7 %
--- NOTE | 2018-10-16 10:00 | Orthopedics Progress Note ---
Date of Encounter: 10/16/18 Time of Encounter: 10:00 Subjective Interval history: Patient was seen this morning doing well without complaints. Afebrile vital signs stable. Operative extremity: Neurovascularly intact Dressing clean dry and intact Calves nontender Assessment and plan: Continue with postoperative care dc to ecf when approved Objective Vital signs: Vital Signs Temp Pulse Resp BP Pulse Ox 10/16/18 07:31 98.2 F 90 14 157/77 96 10/16/18 04:48 98.6 F 88 16 179/76 95 10/15/18 23:05 98.4 F 108 16 163/81 96 10/15/18 18:48 99.0 F 99 17 168/85 94 10/15/18 16:28 99.2 F 88 16 136/68 96 10/15/18 12:02 98.0 F 72 16 114/63 94 10/15/18 10:45 156/68 Intake and Output 10/15/18 10/16/18 10/16/18 23:59 07:59 15:59 Intake Total 300 / 300 Output Total 350 / 350 400 / 400 Balance -350 / -350 -100 / -100 Intake: Oral 300 / 300 Output: Urine 350 / 350 400 / 400 Other: Weight 76.658 kg Blood Glucose* 200 185 Patient Weight 10/16/18 23:59 Weight 76.658 kg - Labs CBC & BMP: 10/16/18 09:10 10/15/18 04:22 Labs: Abnormal lab results WBC 11.8 K/mcL (4.3-11.1) H 10/16/18 09:10 RBC 3.43 M/mcL (3.82-4.97) L 10/16/18 09:10 Hgb 10.2 g/dL (11.5-15.4) L 10/16/18 09:10 Hct 31.3 % (35.3-44.9) L 10/16/18 09:10 Glucose 154 mg/dL (70-105) H 10/15/18 04:22 POC Glucose 200 mg/dL (70-99) H 10/15/18 19:40 Nasal Screen MRSA (PCR) Positive (Negative) A 10/15/18 13:00 Consult Discharge Plan - Plan Referrals: Stephanie Reyes, PAC [Physician Assistant Director Of Admissions] - 10/23/18 8:45 am (Second followup 10/30/18 @ 9am) Jose Posey MD [Partnered Physician] - 11/12/18 5:10 pm Prescriptions: Tizanidine HCl [Zanaflex] 6 mg PO TID PRN 7 Days #21 cap PRN Reason: Spasms
[2018-10-16 10:13] LABS: BUN/Creatinine Ratio 19 (6-26); Blood Urea Nitrogen 15 mg/dL (8-23); Calcium 9.4 mg/dL (8.6-10.3); Carbon Dioxide 24 mEq/L (23-29); Chloride 102 mEq/L (98-107); Glucose 267 mg/dL (70-105); Osmolality,Calculated 296 (280-300); Sodium 138 mEq/L (136-145); eGFR For Non-African Americans > 60 (> 60)
[2018-10-16 14:46] VITALS: BP 131/68
== END 2018-10-16 19:25 | DRG 470 ==
LOC: SAMDAY 06:34 → 3NENU 10:35
PROVIDERS: ADMIT Orthopaedic Surgery; ATTEND Orthopaedic Surgery

== ENCOUNTER 2020-01-25 11:14 | Observation (INO) ==
[~2020-01-25 11:14] MED LIST: Total Joint Mixture (50 ml) IR ONE
[2020-01-25] MEDS ORDERED: CeFAZolin Syr 2,000MG/20 ML 2,000 MG/20 ML SYRINGE IVPB ONE (11:44)
[2020-01-25] MEDS ORDERED: *HR* OxyCODONE Immed Rel 5 MG TABLET PO PRN (11:58)
[2020-01-25] MEDS ORDERED: Acetaminophen IV 1,000 MG/100 ML INFUS..BTL IVPB ONE (11:58)
[2020-01-25] MEDS ORDERED: Ondansetron 4 MG/2 ML VIAL IVP ONE (11:58)
[2020-01-25] MEDS ORDERED: *HR* Meperidine 25 MG/ML SYRINGE IVP PRN (11:58)
[2020-01-25] MEDS: Ringers Solution, Lactated 1,000 ML IVC SCH ×2 (12:00→17:45)
[2020-01-25] MEDS ORDERED: Ethanol\\Acetic Acid\\Na Ace\\Ben 1,000 ML IRRIG.SOLN IR ONE (13:27)
[2020-01-25] MEDS ORDERED: *HR* FentaNYL (PF) 100 MCG/2 ML VIAL ONE (13:43)
[2020-01-25] MEDS ORDERED: *HR* Midazolam HCl 2 MG/2 ML VIAL ONE (13:43)
[2020-01-25] MEDS ORDERED: ROPIVACAINE/PF/NS 0.25% 1 EACH SYRINGE INTRAART ONE (13:44)
[2020-01-25] MEDS ORDERED: *HR* Propofol 200 MG/20 ML VIAL IVP ONE ×2 (14:01→16:47)
[2020-01-25] MEDS ORDERED: Lidocaine -MPF 2% 2 ML VIAL ONE (14:01)
[2020-01-25] MEDS ORDERED: Tranexamic Acid 1,000 MG/10 ML VIAL ONE (14:03)
[2020-01-25] MEDS ORDERED: *HR* Dextrose 50 % in Water (Syg) 50 ML SYRINGE IVP ONE (15:28)
[2020-01-25] MEDS ORDERED: *HR* Dextrose 50 % in Water (Vial) 50 ML VIAL ONE (15:28)
[2020-01-25] MEDS: *HR* HYDROmorphone PF 0.5 MG/0.5 ML SYRINGE IVP PRN ×2 (17:33→17:44)
[2020-01-25] MEDS: *HR* HYDROmorphone (PF) 1 MG/ML SYRINGE IVP PRN ×4 (18:00→18:30)
[2020-01-25 18:22] LABS: Hematocrit 34.7 % (35.3-44.9); Hemoglobin 10.9 g/dL (11.5-15.4)
[2020-01-25] MEDS ORDERED: cloNIDine HCL 0.1 MG TABLET PO ONE (18:36)
[2020-01-25] MEDS ORDERED: Ketorolac 15 MG/ML VIAL IVP ONE (18:36)
[2020-01-25] MEDS ORDERED: *HR* Glimepiride 2 MG TABLET PO PRN (19:41)
[2020-01-25] MEDS ORDERED: *HR* Dextrose 50 % in Water (Syg) 50 ML SYRINGE IVP PRN (19:41)
[2020-01-25] MEDS ORDERED: Dextrose Gel 15 GM/37.5 ML TUBE PO PRN ×2 (19:41)
[2020-01-25] MEDS ORDERED: Ondansetron 4 MG/2 ML VIAL IVP PRN (19:41)
[2020-01-25] MEDS ORDERED: Naloxone 0.4 MG/ML INJ IVP PRN (19:41)
[2020-01-25] MEDS ORDERED: *HR* Promethazine 25 MG/ML VIAL IVP PRN (19:41)
[2020-01-25] MEDS ORDERED: MOM Conc 10 ML UD.LIQ PO PRN (19:41)
[2020-01-25] MEDS ORDERED: Sennosides 8.6 MG TABLET PO PRN (19:41)
[2020-01-25] MEDS ORDERED: Ringers Solution, Lactated 1,000 ML IVC SCH (19:41)
[2020-01-25] MEDS ORDERED: D5% in Water 1,000 ML IVC PRN (19:41)
[2020-01-25] MEDS: Ascorbic Acid 500 MG TABLET PO SCH (21:06)
[2020-01-25] MEDS: *HR* OxyCODONE Immed Rel 5 MG TABLET PO PRN (21:07)
[2020-01-25] MEDS: *HR* Metformin 500 MG TABLET PO SCH (21:07)
[2020-01-25] MEDS: Insulin DETEMIR 100 UNIT/ML X5UNITS SQ SCH (23:17)
[2020-01-25] MEDS: Insulin LISPRO 300 UNITS/3 ML VIAL SQ SCH (23:19)
[2020-01-26 01:30] LABS: Basophils % 0.1 %; Hematocrit 30.3 % (35.3-44.9); Hemoglobin 9.5 g/dL (11.5-15.4); Immature Granulocytes % 0.4 % (0-4); Lymphocytes # 0.8 K/mcL (0.6-4.6); Lymphocytes % 7.2 %; Mean Corpuscular HGB Conc 31.4 g/dL (31.6-35.5); Mean Corpuscular Hemoglobin 29.4 pg (28.0-33.3); Mean Corpuscular Volume 93.8 fL (83.0-100.0); Mean Platelet Volume 9.9 fL (9.4-12.4); Monocytes # 0.4 K/mcL (0.0-1.3); Neutrophils # 9.6 K/mcL (1.6-8.9); Platelet Count 213 K/mcL (140-400); Red Blood Count 3.23 M/mcL (3.82-4.97); Red Cell Distribution Width 12.2 % (11.5-14.5); Segmented Neutrophils % 88.3 %; White Blood Count 10.9 K/mcL (4.3-11.1)
[2020-01-26 01:53] LABS: BUN/Creatinine Ratio 23 (6-26); Blood Urea Nitrogen 21 mg/dL (8-23); Calcium 8.7 mg/dL (8.6-10.3); Carbon Dioxide 23 mEq/L (23-29); Chloride 107 mEq/L (98-107); Glucose 246 mg/dL (70-105); Osmolality,Calculated 291 (280-300); Potassium 5.3 mEq/L (3.5-5.1); Sodium 135 mEq/L (136-145); eGFR For African Americans > 60 (> 60); eGFR For Non-African Americans > 60 (> 60)
[2020-01-26] MEDS: *HR* OxyCODONE Immed Rel 5 MG TABLET PO PRN ×5 (02:48→22:13)
[2020-01-26] MEDS: *HR* Metformin 500 MG TABLET PO SCH ×2 (08:25→20:33)
[2020-01-26] MEDS: Lactobacillus 1 EACH CAP.SPRINK PO SCH (08:25)
[2020-01-26] MEDS: Cholecalciferol (D-3) 1,000 UNIT (25MCG) TABLET PO SCH (08:26)
[2020-01-26] MEDS: Multivit/Ca/Min/Fe/FA 1 TAB TABLET PO SCH (08:26)
[2020-01-26] MEDS: Vitamin E 200 UNIT (90MG) CAPSULE PO SCH (08:26)
[2020-01-26] MEDS ORDERED: NON-FORMULARY MEDICATION 1 EACH EACH (Multivitamin [One Daily Essential] 1 TAB) PO SCH (09:00)
[2020-01-26] MEDS: Insulin LISPRO 300 UNITS/3 ML VIAL SQ SCH ×4 (09:03→20:36)
[2020-01-26] MEDS: HYDROcodone BIT/Homatropine 5 MG TABLET PO PRN ×2 (11:15→20:33)
[2020-01-26] MEDS: Ascorbic Acid 500 MG TABLET PO SCH ×2 (11:15→17:12)
[2020-01-26] MEDS: Aspirin Enteric Coated 81 MG Tablet PO SCH (14:02)
[2020-01-26] MEDS: Insulin DETEMIR 100 UNIT/ML X5UNITS SQ SCH (20:33)
[2020-01-27] MEDS: tiZANidine 4 MG TABLET PO PRN ×2 (00:43→10:08)
[2020-01-27 01:27] LABS: Basophils % 0.2 %; Eosinophils # 0.1 K/mcL (0.0-0.6); Eosinophils % 1.4 %; Hematocrit 27.6 % (35.3-44.9); Hemoglobin 8.8 g/dL (11.5-15.4); Immature Granulocytes % 0.3 % (0-4); Lymphocytes # 1.7 K/mcL (0.6-4.6); Lymphocytes % 17.3 %; Mean Corpuscular HGB Conc 31.9 g/dL (31.6-35.5); Mean Corpuscular Hemoglobin 30.1 pg (28.0-33.3); Mean Corpuscular Volume 94.5 fL (83.0-100.0); Mean Platelet Volume 9.9 fL (9.4-12.4); Monocytes # 0.8 K/mcL (0.0-1.3); Monocytes % 8.4 %; Platelet Count 174 K/mcL (140-400); Red Blood Count 2.92 M/mcL (3.82-4.97); Red Cell Distribution Width 12.5 % (11.5-14.5); Segmented Neutrophils % 72.4 %; White Blood Count 9.7 K/mcL (4.3-11.1)
[2020-01-27 01:47] LABS: Calcium 9.3 mg/dL (8.6-10.3); Potassium 4.1 mEq/L (3.5-5.1)
[2020-01-27] MEDS: *HR* OxyCODONE Immed Rel 5 MG TABLET PO PRN ×5 (03:09→21:28)
[2020-01-27] MEDS: Lactobacillus 1 EACH CAP.SPRINK PO SCH (08:48)
[2020-01-27] MEDS: Vitamin E 200 UNIT (90MG) CAPSULE PO SCH (08:48)
[2020-01-27] MEDS: Aspirin Enteric Coated 81 MG Tablet PO SCH (08:48)
[2020-01-27] MEDS: Multivit/Ca/Min/Fe/FA 1 TAB TABLET PO SCH (08:49)
[2020-01-27] MEDS: *HR* Metformin 500 MG TABLET PO SCH (08:49)
[2020-01-27] MEDS: Ascorbic Acid 500 MG TABLET PO SCH ×2 (08:49→16:53)
[2020-01-27] MEDS: Cholecalciferol (D-3) 1,000 UNIT (25MCG) TABLET PO SCH (08:49)
[2020-01-27] MEDS: Insulin LISPRO 300 UNITS/3 ML VIAL SQ SCH ×3 (08:50→17:29)
[2020-01-27] MEDS ORDERED: Gabapentin 300 MG CAPSULE PO ONE (13:13)
[2020-01-27] MEDS ORDERED: 0.9 % Sodium Chloride 1,000 ML IV ONE (16:16)
[2020-01-27] MEDS ORDERED: tiZANidine 4 MG TABLET PO PRN (16:30)
[2020-01-27] MEDS ORDERED: Insulin LISPRO 300 UNITS/3 ML VIAL SQ SCH (21:00)
[2020-01-27] MEDS ORDERED: Insulin DETEMIR 100 UNIT/ML X5UNITS SQ SCH (21:00)
[2020-01-27] MEDS: Gabapentin 100 MG CAPSULE PO SCH (21:29)
[2020-01-28] MEDS ORDERED: Insulin LISPRO 300 UNITS/3 ML VIAL SQ SCH (01:00)
[2020-01-28] MEDS: *HR* OxyCODONE Immed Rel 5 MG TABLET PO PRN ×2 (04:52→12:08)
[2020-01-28 07:15] VITALS: BP 117/68
[2020-01-28] MEDS: Aspirin Enteric Coated 81 MG Tablet PO SCH (08:42)
[2020-01-28] MEDS: HYDROcodone BIT/Homatropine 5 MG TABLET PO PRN (08:42)
[2020-01-28] MEDS: Cholecalciferol (D-3) 1,000 UNIT (25MCG) TABLET PO SCH (08:43)
[2020-01-28] MEDS: Gabapentin 100 MG CAPSULE PO SCH (08:43)
[2020-01-28] MEDS: Multivit/Ca/Min/Fe/FA 1 TAB TABLET PO SCH (08:43)
[2020-01-28] MEDS: Ascorbic Acid 500 MG TABLET PO SCH (08:43)
[2020-01-28] MEDS: Insulin LISPRO 300 UNITS/3 ML VIAL SQ SCH (08:43)
[2020-01-28] MEDS: Lactobacillus 1 EACH CAP.SPRINK PO SCH (08:43)
[2020-01-28] MEDS: Vitamin E 200 UNIT (90MG) CAPSULE PO SCH (08:43)
[2020-01-28] MEDS ORDERED: Insulin DETEMIR 100 UNIT/ML X5UNITS SQ SCH (09:00)
[2020-01-28 09:25] LABS: Basophils % 0.5 %; Eosinophils # 0.3 K/mcL (0.0-0.6); Eosinophils % 3.3 %; Hematocrit 28.2 % (35.3-44.9); Hemoglobin 8.7 g/dL (11.5-15.4); Immature Granulocytes % 0.4 % (0-4); Lymphocytes # 2.2 K/mcL (0.6-4.6); Lymphocytes % 25.4 %; Mean Corpuscular HGB Conc 30.9 g/dL (31.6-35.5); Mean Corpuscular Hemoglobin 29.2 pg (28.0-33.3); Mean Corpuscular Volume 94.6 fL (83.0-100.0); Mean Platelet Volume 9.7 fL (9.4-12.4); Monocytes # 0.9 K/mcL (0.0-1.3); Monocytes % 10.6 %; Neutrophils # 5.1 K/mcL (1.6-8.9); Platelet Count 169 K/mcL (140-400); Red Blood Count 2.98 M/mcL (3.82-4.97); Red Cell Distribution Width 12.8 % (11.5-14.5); Segmented Neutrophils % 59.8 %; White Blood Count 8.5 K/mcL (4.3-11.1)
[2020-01-28 09:51] LABS: BUN/Creatinine Ratio 24 (6-26); Blood Urea Nitrogen 25 mg/dL (8-23); Calcium 9.2 mg/dL (8.6-10.3); Carbon Dioxide 26 mEq/L (23-29); Chloride 106 mEq/L (98-107); Glucose 224 mg/dL (70-105); Osmolality,Calculated 297 (280-300); Potassium 4.2 mEq/L (3.5-5.1); Sodium 138 mEq/L (136-145); eGFR For African Americans > 60 (> 60); eGFR For Non-African Americans 52 (> 60)
[2020-01-31] MEDS ORDERED: NON-FORMULARY MEDICATION 1 EACH EACH (Exenatide Microspheres [Bydureon Pen] 2 MG) SQ SCH (12:32)
== END 2020-01-28 12:45 | disposition home health service (06) ==
LOC: SAMDAY 11:14 → 3NENU 11:14
PROVIDERS: ADMIT Orthopaedic Surgery; ATTEND Orthopaedic Surgery

== ENCOUNTER 2020-12-24 11:55 | Observation (INO) ==
[2020-12-24 12:39] LABS: Basophils # 0.1 K/mcL (0.0-0.2); Basophils % 0.4 %; Eosinophils # 0.1 K/mcL (0.0-0.6); Eosinophils % 1.1 %; Hematocrit 36.4 % (35.3-44.9); Hemoglobin 11.7 g/dL (11.5-15.4); Immature Granulocytes % 0.2 % (0-4); Lymphocytes # 1.9 K/mcL (0.6-4.6); Lymphocytes % 15.7 %; Mean Corpuscular HGB Conc 32.1 g/dL (31.6-35.5); Mean Corpuscular Hemoglobin 28.9 pg (28.0-33.3); Mean Corpuscular Volume 89.9 fL (83.0-100.0); Mean Platelet Volume 9.6 fL (9.4-12.4); Monocytes # 1.1 K/mcL (0.0-1.3); Monocytes % 9.3 %; Neutrophils # 8.8 K/mcL (1.6-8.9); Platelet Count 302 K/mcL (140-400); Red Blood Count 4.05 M/mcL (3.82-4.97); Red Cell Distribution Width 13.2 % (11.5-14.5); Segmented Neutrophils % 73.3 %
[2020-12-24 12:40] LABS: Bilirubin,Urine Negative (Negative); Blood,Urine Moderate (Negative); Clarity,Urine Clear (Clear); Color,Urine Light-Yellow (Yellow); Glucose,Urine (UA) Normal (Normal); Ketones,Urine Negative (Negative); Leukocyte Esterase,Urine Negative (Negative); Mucus,Urine Few per lpf (None-Few); Nitrite,Urine Negative (Negative); PH,Urine 5.5 pH Units (5.0-8.0); Protein,Urine Trace mg/dL (Neg-Trace); RBC,Urine 30-50 per hpf (0-3); Urobilinogen,Urine Normal (Normal); WBC,Urine 0-3 per hpf (0-3)
[2020-12-24] MEDS ORDERED: Isovue-370 500 ML BOTTLE IVP ONE (13:03)
[2020-12-24 13:05] LABS: Albumin 4.7 g/dL (3.5-5.7); Albumin/Globulin Ratio 1.7 (1.1-2.2); Bilirubin,Direct 0.1 mg/dL (0.0-0.2); Bilirubin,Indirect 0.3 mg/dL (0.0-1.0); Bilirubin,Total 0.4 mg/dL (0.3-1.0); Globulin 2.8 g/dL (2.4-3.5); Potassium 4.6 mEq/L (3.5-5.1); Total Protein 7.5 g/dL (6.4-8.9)
[2020-12-24] MEDS ORDERED: *HR* HYDROmorphone (PF) 1 MG/ML SYRINGE IVP ONE (13:32)
[2020-12-24] MEDS ORDERED: Ondansetron 4 MG/2 ML VIAL IVP ONE (13:32)
[2020-12-24] MEDS ORDERED: Naloxone 0.4 MG/ML INJ IVP PRN ×2 (14:39→18:06)
[2020-12-24] MEDS ORDERED: Ondansetron ODT 4 MG TAB.RAPDIS SL PRN ×2 (14:39→18:06)
[2020-12-24] MEDS ORDERED: D5% in Water 1,000 ML IVC PRN ×2 (14:43→18:06)
[2020-12-24] MEDS ORDERED: Dextrose Gel 15 GM/37.5 ML TUBE PO PRN ×4 (14:43→18:06)
[2020-12-24] MEDS ORDERED: *HR* Dextrose 50 % in Water (Vial) 50 ML VIAL IVP PRN ×2 (14:43→16:50)
[2020-12-24] MEDS ORDERED: 0.9 % Sodium Chloride 1,000 ML IVC ONE (14:44)
[2020-12-24] MEDS ORDERED: 0.9 % Sodium Chloride 1,000 ML IVC SCH (14:45)
[2020-12-24] MEDS ORDERED: *HR* Propofol 200 MG/20 ML VIAL IVP ONE (15:05)
[2020-12-24] MEDS ORDERED: ceFAZolin 2,000 MG in Water for inj. (sterile) 20 ML IVP ONE (15:39)
[2020-12-24] MEDS ORDERED: Isovue-300 50ML VIAL ONE (15:51)
[2020-12-24] MEDS ORDERED: Insulin LISPRO 300 UNITS/3 ML VIAL SUBQ SCH ×3 (16:30→21:00)
[2020-12-24] MEDS: *HR* FentaNYL (PF) 100 MCG/2 ML VIAL IVP PRN ×2 (17:30→17:40)
[2020-12-24] MEDS ORDERED: cefTRIAXone 1,000 MG in Water for inj. (sterile) 10 ML IVP SCH (18:06)
[2020-12-24] MEDS ORDERED: *HR* Belladonna Alkaloids/Opium 30 MG RECTAL SUPPOSITORY RC PRN (18:06)
[2020-12-24] MEDS: 0.9 % Sodium Chloride 1,000 ML IVC SCH (18:21)
[2020-12-24] MEDS: Gabapentin 100 MG CAPSULE PO SCH (19:58)
[2020-12-24] MEDS: Aspirin Enteric Coated 81 MG Tablet PO SCH (19:59)
[2020-12-25] MEDS: 0.9 % Sodium Chloride 1,000 ML IVC SCH (04:16)
[2020-12-25 07:04] LABS: Basophils % 0.2 %; Eosinophils # 0.2 K/mcL (0.0-0.6); Eosinophils % 2.3 %; Hematocrit 32.1 % (35.3-44.9); Immature Granulocytes % 0.2 % (0-4); Lymphocytes # 1.4 K/mcL (0.6-4.6); Mean Corpuscular HGB Conc 31.2 g/dL (31.6-35.5); Mean Corpuscular Hemoglobin 28.7 pg (28.0-33.3); Mean Corpuscular Volume 92.2 fL (83.0-100.0); Mean Platelet Volume 9.9 fL (9.4-12.4); Monocytes # 0.8 K/mcL (0.0-1.3); Monocytes % 8.7 %; Neutrophils # 6.3 K/mcL (1.6-8.9); Platelet Count 232 K/mcL (140-400); Red Blood Count 3.48 M/mcL (3.82-4.97); Red Cell Distribution Width 13.4 % (11.5-14.5); Segmented Neutrophils % 72.6 %; White Blood Count 8.6 K/mcL (4.3-11.1)
[2020-12-25 07:09] LABS: INR 1.3; Prothrombin Time 14.4 Seconds (9.4-12.1)
[2020-12-25 07:30] LABS: Calcium 9.2 mg/dL (8.6-10.3)
[2020-12-25] MEDS ORDERED: Insulin LISPRO 300 UNITS/3 ML VIAL SUBQ SCH (07:30)
[2020-12-25 07:49] VITALS: BP 115/70
[2020-12-25] MEDS: Aspirin Enteric Coated 81 MG Tablet PO SCH (08:04)
[2020-12-25] MEDS: Gabapentin 100 MG CAPSULE PO SCH (08:04)
== END 2020-12-25 10:36 | disposition home or self-care (01) ==
LOC: SUATTDRO → EMEROOARM 11:55 → 3ANU 14:50 → SUATTDRO 14:50 → INTOOBSV 14:50 → 3ANU 15:06
PROVIDERS: ADMIT Family Medicine; ATTEND Family Medicine